=== PATIENT | male | born 1975 | race Caucasian/White ===

== ENCOUNTER 2018-07-13 10:35 | Emergency (ER) | payer SELFPAY ==
[~2018-07-13] VITALS: Ht 157.5 cm; Wt 75.0 kg
[2018-07-13] MEDS ORDERED: ONDANSETRON HCL 4MG/2ML INJ IV STA (14:21)
[2018-07-13] MEDS ORDERED: MAGNESIUM/ALUMINUM HYDROXIDE/SIMETHICONE 30ML UDC PO STA (14:21)
[2018-07-13] MEDS ORDERED: KETOROLAC 30MG/ML VIAL IV STA (14:21)
[2018-07-13] MEDS ORDERED: SODIUM CHLORIDE 0.9% 1,000 ML IV ONE (14:21)
[2018-07-13 14:56] LABS: BASOPHILS % 1.1 % (0.0-2.0); EOSINOPHILS % 1.1 % (0.0-5.0); HEMATOCRIT. 47.2 % (42.0-52.0); HEMOGLOBIN. 15.9 g/dL (14.0-18.0); LYMPHOCYTES % 39.7 % (20.0-50.0); MEAN CORPUSCULAR HEMOGLOBIN 28.7 pg (28.0-32.0); MEAN CORPUSCULAR VOLUME 85.3 fL (80.0-94.0); MEAN PLATELET VOLUME 9.5 fl (7.4-10.4); MONOCYTES % 9.4 % (2.0-8.0); NEUTROPHILS % 48.7 % (40.0-76.0); PLATELET 236 x1000/uL (130-400); RED BLOOD CELL COUNT 5.53 mill/uL (4.7-6.1)
[2018-07-13 15:01] LABS: CHLORIDE 104 mEq/L (98-107); PROTHROMBIN TIME 10.2 sec (9.1-11.1)
[2018-07-13 18:31] VITALS: BP 103/68
== END 2018-07-13 18:33 | disposition home or self-care (01) ==
LOC: ER 10:35
DX: R10.33 Periumbilical pain (principal); K64.4 Residual hemorrhoidal skin tags; N40.0 Benign prostatic hyperplasia without lower urinary tract symptoms
CPT/HCPCS: 36415; 74176; 80053; 83690; 85025; 85610; 96374; 96375; 99284; J1885; J2405; J7030

== ENCOUNTER 2019-02-18 14:52 | Emergency (ER) | payer MEDICAID ==
[~2019-02-18] VITALS: Ht 157.5 cm; Wt 75.0 kg
[2019-02-18] MEDS ORDERED: AMOXICILLIN/POTASSIUM CLAVULANATE 875/125MG TAB PO ONE (18:45)
[2019-02-18] MEDS ORDERED: IBUPROFEN 600MG TABLET PO ONE (18:45)
[2019-02-18 19:23] VITALS: BP 145/83
== END 2019-02-18 19:25 | disposition home or self-care (01) ==
LOC: ER 14:52
DX: J32.9 Chronic sinusitis, unspecified (principal)
CPT/HCPCS: 87070; 87430; 99283